=== PATIENT | female | born 1985 | race Caucasian/White ===

== ENCOUNTER 2016-10-29 10:09 | Emergency (ER) | payer MEDICAID, OTHER ==
[~2016-10-29 10:09] MED LIST: IBUP800 PO; LORTA5 PO
[2016-10-29 10:12] VITALS: BP 155/100; PULSE 100; RESP 24; TEMP 97.8; O2SAT 100
[2016-10-29 10:26] VITALS: BP 138/74; PULSE 86; RESP 19; O2SAT 100
--- NOTE | 2016-10-29 10:30 | PD ---
HPI . here for repeat beta hcg Chief Complaint: Related Problem Time Seen by Provider: 10:30 Travel History International Travel<30 days: No Contact w/Intl Traveler<30days: No Traveled to known affect area: No History of Present Illness HPI 31-year-old female who is , with a prior miscarriage about 12-13 years ago here with complaints of vaginal bleeding. Patient went to [facility] yesterday and was told she was having a miscarriage. She is here for a repeat beta hCG as she does not believe that she was told. She wants to see if her numbers are increasing. She was told that she should not return to [facility] until Monday, therefore that is why she is here at [place]. She denies any abdominal pain. She has no specific complaints other than light vaginal bleeding. She had an ultrasound done at [facility] and was dating 5 weeks 2 days, she was told it was too early for heartbeat. PFSH Past Medical History Diminished Hearing: No Tetanus Vaccination: Unknown ?: : 2 Para: 0 Miscarriage: 1 Social History Alcohol Use: No Tobacco Use: No (quit 3 days ago) Allergies-Medications (Allergen,Severity, Reaction): Coded Allergies: No Known Allergies (Unverified , 04/28/13) Reported Meds & Prescriptions Reported Meds & Active Scripts Active Review of Systems General / Constitutional: No: Fever Eyes: No: Visual changes HENT: No: Headaches Cardiovascular: No: Chest Pain or Discomfort Respiratory: No: Shortness of Breath Gastrointestinal: No: Abdominal Pain Genitourinary: Positive: Vaginal Bleeding, No: Dysuria Musculoskeletal: No: Pain Skin: No Rash Neurologic: No: Weakness Psychiatric: No: Depression Endocrine: No: Polydipsia Hematologic/Lymphatic: No: Easy Bruising Physical Exam Narrative GENERAL: AAO x 3, no acute distress, Well-nourished, well-developed patient. SKIN: Warm and dry. No visible rashes or bruising. HEAD: Normocephalic and atraumatic. EYES: No scleral icterus. No injection or drainage. ENT: No nasal drainage noted. Mucous membranes pink. Airway patent. NECK: Supple, trachea midline. No JVD. CARDIOVASCULAR: Regular rate and rhythm without murmurs, gallops, or rubs. RESPIRATORY: Breath sounds equal bilaterally. No accessory muscle use. No rhonchi or rales. GASTROINTESTINAL: Abdomen soft, non-tender, nondistended. EXTREMITIES: No cyanosis or edema. BACK: Nontender without obvious deformity. No CVA tenderness. NEURO: CN II-12 intact, PSYCH: AAO x 3, anxious and tearful Data Data Last Documented VS Vital Signs Date Time Temp Pulse Resp B/P Pulse Ox O2 Delivery O2 Flow Rate FiO2 10/29/16 10:26 86 19 138/74 100 Room Air 10/29/16 10:12 97.8 Orders Beta Hcg (Quant/Titer) (10/29/16 10:35) Labs Laboratory Tests Test 10/29/16 10:35 Human Chorionic Gonadotropin, 3413 MIU/ML Quant MDM Medical Decision Making Medical Screen Exam Complete: Yes Emergency Medical Condition: Yes Medical Record Reviewed: Yes Differential Diagnosis Implantation bleeding, threatened , less likely ectopic Narrative Course 31-year-old female here for repeat beta hCG. She is 5 weeks 2 days and was told she was having a miscarriage. She does not believe what she was told would like a repeat beta hCG. Beta HCG is 3414, I recommend recheck in 2 days. Patient verbalized understanding of instructions, questions were answered, and thanked me for their care. I advised them if their condition worsens, please return to the nearest emergency room for further care. Diagnosis Primary Impression: Qualified Code: Z3A.01 - Less than 8 weeks gestation of Patient Instructions: General Instructions Additional Instructions: Please have your beta hCG levels rechecked in approximately 2 days. Follow up with your CLINICAL SUPPORT NURSE. Disposition: 01 DISCHARGE HOME Condition: Stable Kim Trotter Oct 29, 2016 10:30 Kim Trotter Oct 29, 2016 10:30
[2016-10-29 11:26] LABS: BETA HCG QUANT 3413 MIU/ML (0-5)
== END 2016-10-29 12:20 | disposition home or self-care (01) ==
LOC: NEPD 10:09
DX: O46.91 Antepartum hemorrhage, unspecified, first trimester (principal); Z3A.01 Less than 8 weeks gestation of pregnancy; Z87.891 Personal history of nicotine dependence
CPT/HCPCS: 84702; 99283

== ENCOUNTER 2016-11-04 20:49 | Emergency (ER) | payer MEDICAID, OTHER ==
[~2016-11-04] VITALS: Ht 167.6 cm; Wt 55.0 kg
[2016-11-04 20:52] VITALS: BP 131/92; PULSE 101; RESP 16; TEMP 98; O2SAT 100
--- NOTE | 2016-11-04 22:09 | PD ---
HPI Chief Complaint: [place] Problem/Complaint Time Seen by Provider: 22:05 Travel History International Travel<30 days: No Contact w/Intl Traveler<30days: No Traveled to known affect area: No History of Present Illness HPI 31-year-old white female 3 para 1 AB 1 with approximately 4-5 week who presents with vaginal bleeding and cramping. She states that she' s been seen at [facility] as well as here at [place] and was told that she is at high risk for miscarriage. There is some concern that the fetus had a low heart be and low hCG and that she was going to have an impending miscarriage. She states that she was seen at [facility] 2 days ago and had an ultrasound which showed a heart be in the low 70s and low quantitative hCG. She presents today due to bleeding and pain. She denies any fever chills. No nausea vomiting. No upper abdominal pain. No vaginal leakage of fluid or tissue. No urinary symptoms. No dizziness or syncope. PFSH Past Medical History Narrative Medical Miscarriage Diminished Hearing: No Tetanus Vaccination: < 5 Years : 3 Para: 1 Miscarriage: 1 Past Surgical History Surgical History: No Previous Surgery Social History Alcohol Use: No Tobacco Use: Yes Allergies-Medications (Allergen,Severity, Reaction): Coded Allergies: No Known Allergies (Unverified , 04/28/13) Reported Meds & Prescriptions Reported Meds & Active Scripts Active Anaprox DS (Naproxen Sodium) 550 Mg Tab 550 Mg PO BID Review of Systems Except as stated in HPI: all other systems reviewed are Neg Physical Exam Narrative GENERAL: Well-developed, well-nourished in no apparent distress. Nontoxic appearing. HEAD: Normocephalic, atraumatic. EYES: Pupils equal round and reactive. Extraocular motions intact. No scleral icterus. No injection or drainage. ENT: Nose clear. Throat without erythema, tonsillar hypertrophy or exudate. Uvula midline. Airway patent. NECK: Trachea midline. Supple, nontender, moves head freely. No central bony tenderness or spasm. CARDIOVASCULAR: Regular rate and rhythm without murmurs, gallops, or rubs. RESPIRATORY: Clear to auscultation. Breath sounds equal bilaterally. No wheezes , rales, or rhonchi. GASTROINTESTINAL: Abdomen soft, non-tender, nondistended. No hepato-splenomegaly , or palpable masses. No guarding. EXTREMITIES: No clubbing, cyanosis, or edema. No joint tenderness. BACK: Nontender without deformity. No flank tenderness. NEUROLOGICAL: Awake, alert and oriented x 3 .Cranial nerves grossly intact. Motor and sensory grossly within normal limits. Normal speech. Data Data Last Documented VS Vital Signs Date Time Temp Pulse Resp B/P Pulse Ox O2 Delivery O2 Flow Rate FiO2 11/04/16 22:28 18 11/04/16 20:52 98.0 101 131/92 100 Room Air Orders Beta Hcg (Quant/Titer) (11/04/16 21:23) Beta Hcg (Quant/Titer) (11/04/16 21:58) Ketorolac Inj (Toradol Inj) (11/04/16 23:30) Ketorolac Inj (Toradol Inj) (11/04/16 23:45) Labs Laboratory Tests Test 11/04/16 22:15 Human Chorionic Gonadotropin, 2285 MIU/ML Quant MDM Medical Decision Making Medical Screen Exam Complete: Yes Emergency Medical Condition: Yes Medical Record Reviewed: Yes Interpretation(s) Laboratory Tests Test 11/04/16 22:15 Human Chorionic Gonadotropin, 2285 MIU/ML Quant Differential Diagnosis Differential diagnoses: Ectopic , threatened AB, missed AB, demise Narrative Course I've asked the nurse to get a copy of the patient's last ER visit including ultrasound and quantitative hCG. We will repeat quantitative hCG and pelvic exam today to rule out products of conception. Patient's hCG has gone down by 1000. I reviewed the patient's laboratory testing, and multiple ultrasound from [facility]. This is all consistent with a miscarriage. Patient is aware that she will go on and passed products of conception. She is given Toradol 60 mg IM. Patient's blood type is A positive by review of the medical record. This is an incomplete AB Procedures Procedure Narrative GENITOURINARY: Shyann the nurse was present. Normal external genitalia without lesions or erythema. Vaginal vault large blood clots. Cervical os was open. Bilateral adnexa nontender without masses. Patient informed there is concern for early miscarriage No products of conception noted Diagnosis Primary Impression: Incomplete Referrals: [facility] Patient Instructions: General Instructions Departure Forms: Tests/Procedures, Work Release Special Instructions: No work 3 days. Additional Instructions: Rest. Increase fluids. Anaprox. Pelvic rest. Follow-up with your doctor of radiology in the next week for recheck. Follow-up with the [facility] in one week. Return to the ER for problems. Scripts Naproxen Sodium DS (Anaprox DS)550 Mg Vcx088 Mg PO BID #20 TAB Ref 0 Prov:Davey Leavitt MD 11/04/16 Disposition: 01 DISCHARGE HOME Condition: Stable José Miguel Simpson Nov 04, 2016 22:08
[2016-11-04 23:23] LABS: BETA HCG QUANT 2285 MIU/ML (0-5)
[2016-11-04] MEDS ORDERED: KETOROLAC TROMETHAMINE 30 MG/ML (IVP) VIAL IV PUSH ONE (23:30)
[2016-11-04] MEDS ORDERED: NAPR550 PO (23:33)
[2016-11-04] MEDS ORDERED: KETOROLAC TROMETHAMINE 60 MG/2 ML (IM) VIAL IM ONE (23:45)
== END 2016-11-05 00:06 | disposition home or self-care (01) ==
LOC: NEPD 20:49
DX: O03.4 Incomplete spontaneous abortion without complication (principal); Z72.0 Tobacco use
CPT/HCPCS: 84702; 96372; 99284; J1885